=== PATIENT | female | born 1965 | race Caucasian/White ===

== ENCOUNTER 2018-11-17 12:29 | Inpatient (IN) | payer OTHER ==
[~2018-11-17] VITALS: Ht 172.7 cm; Wt 105.0 kg
[2018-11-17 12:38] VITALS: Ht 172.7 cm; Wt 105.0 kg
[2018-11-17 14:13] LABS: PLATELET COUNT 348 x10^3mcL (130-400); RED CELL DISTRIBUTION WIDTH 13.5 % (11.5-14.5)
[2018-11-17 14:15] LABS: CALCIUM 9.4 mg/dL (8.5-10.1); CARBON DIOXIDE 15.5 mmol/L (21-32); CHLORIDE SERUM 106 mmol/L (98-107); CREATININE SERUM 0.8 mg/dL (0.6-1.0); GFR1 > 60 mL/min; GLUCOSE SERUM 187 mg/dL (74-106); POTASSIUM SERUM 3.4 mmol/L (3.5-5.1); SODIUM SERUM 139 mmol/L (136-145)
[2018-11-17 14:19] LABS: ALBUMIN 4.1 g/dL (3.4-5.0); ALKALINE PHOSPHATASE 108 U/L (46-116); ALT/SGPT 11 U/L (14-59); AST/SGOT 14 U/L (15-37); BILIRUBIN TOTAL 0.3 mg/dL (0.20-1.00)
[2018-11-17 14:22] LABS: TOTAL PROTEIN, SERUM 8.3 g/dL (6.4-8.2)
[2018-11-17 15:34] LABS: rbc morphology (normal/abnorm) ABNORMAL (NORMAL)
[2018-11-17] MEDS ORDERED: KEPPRA500 MG PO (19:18)
[2018-11-17] MEDS ORDERED: EFFEXOR-XR37.5 MG PO (19:19)
[2018-11-17] MEDS ORDERED: LAMICTAL200 MG PO (19:20)
[2018-11-17] MEDS ORDERED: TOPAMAX100 MG PO (19:21)
[2018-11-17 20:37] LABS: MAGNESIUM 1.9 mg/dL (1.8-2.4); PHOSPHOROUS 1.1 mg/dL (2.5-4.9)
[2018-11-17 20:38] LABS: CHOLESTEROL/HDL RATIO 5.8
[2018-11-17 21:52] VITALS: BP 182/106
[2018-11-17 23:45] VITALS: BP 171/101
[2018-11-18 05:40] VITALS: BP 148/82
[2018-11-18 07:33] LABS: PLATELET COUNT 350 x10^3mcL (130-400); RED CELL DISTRIBUTION WIDTH 13.5 % (11.5-14.5)
[2018-11-18 07:38] LABS: BASOPHIL % 0 % (0-2)
[2018-11-18 07:41] LABS: CHLORIDE SERUM 108 mmol/L (98-107); CREATININE SERUM 0.6 mg/dL (0.6-1.0); GFR1 > 60 mL/min; GLUCOSE SERUM 122 mg/dL (74-106); SODIUM SERUM 141 mmol/L (136-145)
[2018-11-18 09:39] VITALS: BP 157/98
[2018-11-18 10:25] LABS: UA SPECIFIC GRAVITY 1.025 (1.005-1.035); microscopic required? YES; urine erythrocyte 1+ (NEGATIVE)
[2018-11-18 10:50] LABS: AMPHETAMINE QUAL UR NONE DETECTED (See below)
[2018-11-18 12:24] VITALS: BP 154/99
[2018-11-18 17:16] VITALS: BP 172/96
[2018-11-18 20:32] VITALS: BP 136/89
[2018-11-19 05:41] VITALS: BP 155/94
[2018-11-19 06:07] LABS: BASOPHIL % 0.2 % (0-2); PLATELET COUNT 377 x10^3mcL (130-400); RED CELL DISTRIBUTION WIDTH 13.5 % (11.5-14.5)
[2018-11-19 06:28] LABS: CALCIUM 9.1 mg/dL (8.5-10.1); CARBON DIOXIDE 18.5 mmol/L (21-32); CHLORIDE SERUM 109 mmol/L (98-107); CREATININE SERUM 0.7 mg/dL (0.6-1.0); GFR1 > 60 mL/min; GLUCOSE SERUM 123 mg/dL (74-106); PHOSPHOROUS 2.3 mg/dL (2.5-4.9); POTASSIUM SERUM 3.8 mmol/L (3.5-5.1); SODIUM SERUM 142 mmol/L (136-145)
[2018-11-19 09:03] VITALS: BP 132/83
[2018-11-19] MEDS ORDERED: LIPITOR40 MG PO (09:44)
[2018-11-19 10:24] VITALS: BP 132/83
== END 2018-11-19 10:52 | disposition home or self-care (01) | DRG 249 ==
LOC: ED 12:29 → DU 20:07
PROVIDERS: Emergency Medicine; ADMIT Family Medicine
DX: K52.9 Noninfective gastroenteritis and colitis, unspecified (principal); N17.0 Acute kidney failure with tubular necrosis; E86.0 Dehydration; G40.909 Epilepsy, unspecified, not intractable, without status epilepticus; F32.9 Major depressive disorder, single episode, unspecified; E87.6 Hypokalemia; E83.39 Other disorders of phosphorus metabolism; E78.5 Hyperlipidemia, unspecified
CPT/HCPCS: 87804; J1953; J1956; J2060; J2405; J2550; J3490; J7030; Q0092